=== PATIENT | female | born 1945 | race Caucasian/White ===

== ENCOUNTER 2023-08-13 18:51 | Inpatient (IN) | payer MEDICARE, OTHER ==
[~2023-08-13] VITALS: Ht 170.2 cm; Wt 48.1 kg
[2023-08-13] MEDS ORDERED: IV NS 0.9% 1,000 ML BAG IV ONE (19:30)
[2023-08-13 20:03] LABS: BASOPHILS % (AUTO) 0.7 % (0.0-2.0); EOSINOPHILS # (AUTO) 0.3 K/uL (0.0-0.7); EOSINOPHILS % (AUTO) 4.4 % (0.0-6.0); HEMATOCRIT 33 % (33-45); HEMOGLOBIN 11.1 g/dL (11.5-14.8); LYMPHOCYTES # (AUTO) 2.2 K/uL (0.8-4.8); LYMPHOCYTES % (AUTO) 34.5 % (20.0-44.0); MEAN CORPUSCULAR HEMOGLOBIN 31 PG (26.0-33.0); MEAN CORPUSCULAR HGB CONC 34 g/dl (31.0-36.0); MEAN CORPUSCULAR VOLUME 92 fL (82-100); MONOCYTES # (AUTO) 0.6 K/uL (0.1-1.30); MONOCYTES % (AUTO) 9.4 % (2.0-12.0); NEUTROPHILS # (AUTO) 3.3 K/uL (1.8-8.9); PLATELET COUNT (AUTO) 234 K/uL (150-450); RED BLOOD CELL COUNT(AUTO) 3.59 MIL/uL (4.0-5.2); RED CELL DISTRIBUTION WIDTH 12.6 % (11.5-15.0); WHITE BLOOD COUNT (AUTO) 6.5 K/uL (4.3-11.0)
[2023-08-13 20:30] LABS: CALCIUM, SERUM 8.9 mg/dL (8.5-10.1); CARBON DIOXIDE 29 mmol/L (21-32); CHLORIDE 104 mmol/L (98-107); CREATININE 1.1 mg/dL (0.6-1.3); GLUCOSE 103 mg/dL (74-106); POTASSIUM 3.7 mmol/L (3.5-5.1); SODIUM SERUM 140 mmol/L (136-145); UREA NITROGEN, BLOOD 28 mg/dL (7-18)
[2023-08-13 20:38] LABS: LACTIC ACID 1.2 mmol/L (0.4-2.0)
[2023-08-13 20:44] LABS: ALANINE AMINOTRANSFERASE 11 U/L (12-78); ALBUMIN 3.2 g/dL (3.4-5.0); ALKALINE PHOSPHATASE 60 U/L (46-116); ASPARTATE AMINOTRANSFERASE 17 U/L (15-37); BILIRUBIN,DIRECT 0.1 mg/dL (0.0-0.2); BILIRUBIN,TOTAL 0.2 mg/dL (0.2-1.0); TOTAL PROTEIN, SERUM 7.1 g/dL (6.4-8.2)
[2023-08-13 20:52] LABS: INR 1.01 (0.91-1.10); PROTHROMBIN TIME 10.7 SECS (9.2-11.1)
[2023-08-13 21:20] LABS: APPEARANCE,URINE CLEAR (CLEAR); BILIRUBIN,URINE NEGATIVE (NEGATIVE); BLOOD, URINE NEGATIVE Ery/uL (NEGATIVE); COLOR,URINE YELLOW (YELLOW); KETONES,URINE NEGATIVE (NEGATIVE); LEUKOCYTE ESTERASE ,URINE NEGATIVE (NEGATIVE); NITRITE, URINE NEGATIVE (NEGATIVE); PH,URINE 5.5 (5.0-8.0); PROTEIN,URINE NEGATIVE (NEGATIVE); UGLUCOSE NEGATIVE (NEGATIVE)
[2023-08-13] MEDS ORDERED: CEFTRIAXONE 1GM BAG (ER ONLY) 50 ML IV ONE ×2 (21:30→21:34)
[2023-08-13 22:10] LABS: ADD URINE CULTURE NO; BACTERIA,URINE None seen /HPF (None Seen); RBC,URINE 0-2 /HPF (0-2); SQUAMOUS EPITHELIAL CELL,UR 0-2 /HPF (None Seen); WBC,URINE 0-2 /HPF (0-3)
[2023-08-13] MEDS ORDERED: ACETAMINOPHEN 325 MG TABLET PO PRN (22:30)
[2023-08-13] MEDS ORDERED: IV NS 0.9% 1,000 ML IV SCH (22:30)
[2023-08-13] MEDS ORDERED: MORPHINE SULFATE INJ 2 MG/ML DISP.SYRIN IV PRN (22:30)
[2023-08-13] MEDS ORDERED: ONDANSETRON HCL/PF 4 MG/2 ML VIAL IVP PRN (22:30)
[2023-08-13 23:00] VITALS: BP 129/61; O2SAT 96
[2023-08-13] MEDS: TRAZODONE 50 MG TABLET PO SCH (23:30)
[2023-08-13] MEDS: ALPRAZOLAM 0.25 MG TABLET PO SCH (23:30)
[2023-08-13] MEDS: GABAPENTIN 300 MG CAPSULE PO SCH (23:31)
[2023-08-13] MEDS: CARBIDOPA/LEVA CR 25/100MG 1 TAB.SA PO SCH (23:31)
[2023-08-13] MEDS: ENOXAPARIN SODIUM 40 MG/0.4 ML DISP.SYRIN SQ SCH (23:32)
[2023-08-14 06:28] LABS: BASOPHILS % (AUTO) 0.5 % (0.0-2.0); EOSINOPHILS # (AUTO) 0.3 K/uL (0.0-0.7); EOSINOPHILS % (AUTO) 3.7 % (0.0-6.0); HEMATOCRIT 32 % (33-45); HEMOGLOBIN 10.8 g/dL (11.5-14.8); LYMPHOCYTES % (AUTO) 27.2 % (20.0-44.0); MEAN CORPUSCULAR HEMOGLOBIN 31 PG (26.0-33.0); MEAN CORPUSCULAR HGB CONC 34 g/dl (31.0-36.0); MEAN CORPUSCULAR VOLUME 92 fL (82-100); MONOCYTES # (AUTO) 0.6 K/uL (0.1-1.30); MONOCYTES % (AUTO) 8.1 % (2.0-12.0); NEUTROPHILS # (AUTO) 4.4 K/uL (1.8-8.9); NEUTROPHILS % (AUTO) 60.5 % (43.0-81.0); PLATELET COUNT (AUTO) 211 K/uL (150-450); RED BLOOD CELL COUNT(AUTO) 3.44 MIL/uL (4.0-5.2); RED CELL DISTRIBUTION WIDTH 12.5 % (11.5-15.0); WHITE BLOOD COUNT (AUTO) 7.3 K/uL (4.3-11.0)
[2023-08-14 06:40] LABS: ALANINE AMINOTRANSFERASE 13 U/L (12-78); ALBUMIN 2.8 g/dL (3.4-5.0); ALKALINE PHOSPHATASE 55 U/L (46-116); ASPARTATE AMINOTRANSFERASE 13 U/L (15-37); BILIRUBIN,TOTAL 0.2 mg/dL (0.2-1.0); CALCIUM, SERUM 8.7 mg/dL (8.5-10.1); CARBON DIOXIDE 26 mmol/L (21-32); CHLORIDE 108 mmol/L (98-107); CREATININE 0.8 mg/dL (0.6-1.3); GLUCOSE 106 mg/dL (74-106); MAGNESIUM 1.8 mg/dL (1.8-2.4); PHOSPHORUS 3.8 mg/dL (2.5-4.9); POTASSIUM 4.1 mmol/L (3.5-5.1); SODIUM SERUM 141 mmol/L (136-145); TOTAL PROTEIN, SERUM 6.3 g/dL (6.4-8.2); UREA NITROGEN, BLOOD 19 mg/dL (7-18)
[2023-08-14 07:30] VITALS: BP 158/73; TEMP 97.5; O2SAT 94
[2023-08-14] MEDS ORDERED: IV NS 0.9% 1,000 ML IV PRN (08:33)
[2023-08-14] MEDS ORDERED: LOSA50TA39 PO (08:41)
[2023-08-14] MEDS ORDERED: LANS30CA56 PO (08:41)
[2023-08-14] MEDS ORDERED: LINA145C PO (08:41)
[2023-08-14] MEDS ORDERED: GABA-532 PO ×2 (08:41)
[2023-08-14] MEDS ORDERED: PRAM0.258 PO (08:41)
[2023-08-14] MEDS ORDERED: DONE10TA44 PO (08:41)
[2023-08-14] MEDS ORDERED: LEVO75TA99 PO (08:41)
[2023-08-14] MEDS ORDERED: ASPI-1420 PO (08:41)
[2023-08-14] MEDS ORDERED: SENN-148 PO (08:41)
[2023-08-14] MEDS ORDERED: CYAN10006 IM (08:41)
[2023-08-14] MEDS ORDERED: FLUT1BLS6 INH (08:41)
[2023-08-14] MEDS ORDERED: ATEN50TA PO (08:41)
[2023-08-14] MEDS ORDERED: CARB1TAB39 PO (08:41)
[2023-08-14] MEDS ORDERED: TRAZ-252 PO (08:41)
[2023-08-14] MEDS ORDERED: QUET25TA PO (08:41)
[2023-08-14] MEDS ORDERED: ALPR0.5T8 PO (08:41)
[2023-08-14] MEDS: CARBIDOPA/LEVA CR 25/100MG 1 TAB.SA PO SCH ×3 (09:28→16:03)
[2023-08-14] MEDS ORDERED: Z GUARD REMEDY 4 OZ OINT TP PRN (10:30)
[2023-08-14] MEDS: Z GUARD REMEDY 4 OZ OINT TP SCH (11:44)
[2023-08-14] MEDS: PROSOURCE / PROSTAT (PYXIS) 30 ML UDC PO SCH ×2 (12:37→16:37)
[2023-08-14] MEDS: AMOX/CLAVULANATE 875 MG TABLET PO SCH ×2 (12:50→22:10)
[2023-08-14] MEDS: ENSURE ENLIVE 237 ML LIQUID (VANILLA) PO SCH ×2 (13:01→16:35)
[2023-08-14 16:00] VITALS: BP 184/89; TEMP 97.2; O2SAT 95
[2023-08-14] MEDS: hydrALAZINE HCL 10 MG TABLET PO PRN (16:40)
[2023-08-14 17:30] VITALS: BP 173/86
[2023-08-14 19:00] VITALS: BP 169/79; TEMP 97.9; O2SAT 96
[2023-08-14 20:36] VITALS: BP 169/79; TEMP 97.9; O2SAT 96
[2023-08-14] MEDS: GABAPENTIN 300 MG CAPSULE PO SCH (21:39)
[2023-08-14] MEDS: TRAZODONE 50 MG TABLET PO SCH (21:39)
[2023-08-14] MEDS: ALPRAZOLAM 0.25 MG TABLET PO SCH (21:39)
[2023-08-14] MEDS: ENOXAPARIN SODIUM 40 MG/0.4 ML DISP.SYRIN SQ SCH (21:39)
[2023-08-15 01:12] VITALS: BP 173/97; TEMP 97.9; O2SAT 97
[2023-08-15] MEDS: hydrALAZINE HCL 10 MG TABLET PO PRN ×3 (01:12→16:32)
[2023-08-15 04:02] VITALS: BP 53/93; TEMP 98; O2SAT 96
[2023-08-15 05:53] LABS: BASOPHILS % (AUTO) 0.8 % (0.0-2.0); EOSINOPHILS # (AUTO) 0.3 K/uL (0.0-0.7); EOSINOPHILS % (AUTO) 4.5 % (0.0-6.0); HEMATOCRIT 35 % (33-45); HEMOGLOBIN 11.9 g/dL (11.5-14.8); LYMPHOCYTES # (AUTO) 1.8 K/uL (0.8-4.8); LYMPHOCYTES % (AUTO) 27.9 % (20.0-44.0); MEAN CORPUSCULAR HEMOGLOBIN 31 PG (26.0-33.0); MEAN CORPUSCULAR HGB CONC 34 g/dl (31.0-36.0); MEAN CORPUSCULAR VOLUME 90 fL (82-100); MONOCYTES # (AUTO) 0.4 K/uL (0.1-1.30); NEUTROPHILS # (AUTO) 3.8 K/uL (1.8-8.9); NEUTROPHILS % (AUTO) 59.8 % (43.0-81.0); PLATELET COUNT (AUTO) 253 K/uL (150-450); RED BLOOD CELL COUNT(AUTO) 3.84 MIL/uL (4.0-5.2); RED CELL DISTRIBUTION WIDTH 12.4 % (11.5-15.0); WHITE BLOOD COUNT (AUTO) 6.3 K/uL (4.3-11.0)
[2023-08-15 06:13] LABS: CALCIUM, SERUM 9.3 mg/dL (8.5-10.1); CARBON DIOXIDE 27 mmol/L (21-32); CHLORIDE 104 mmol/L (98-107); CREATININE 0.6 mg/dL (0.6-1.3); GLUCOSE 101 mg/dL (74-106); MAGNESIUM 2.1 mg/dL (1.8-2.4); PHOSPHORUS 3.6 mg/dL (2.5-4.9); POTASSIUM 3.8 mmol/L (3.5-5.1); SODIUM SERUM 139 mmol/L (136-145); UREA NITROGEN, BLOOD 12 mg/dL (7-18)
[2023-08-15 07:30] VITALS: BP 184/87; TEMP 97.9; O2SAT 97
[2023-08-15] MEDS: PROSOURCE / PROSTAT (PYXIS) 30 ML UDC PO SCH ×3 (08:21→16:50)
[2023-08-15] MEDS: CARBIDOPA/LEVA CR 25/100MG 1 TAB.SA PO SCH ×3 (08:23→16:32)
[2023-08-15] MEDS: ENSURE ENLIVE 237 ML LIQUID (VANILLA) PO SCH ×3 (08:23→16:51)
[2023-08-15] MEDS: AMOX/CLAVULANATE 875 MG TABLET PO SCH (08:24)
[2023-08-15] MEDS: Z GUARD REMEDY 4 OZ OINT TP SCH (08:25)
[2023-08-15] MEDS ORDERED: LEVOTHYROXINE SODIUM 75 MCG TABLET PO SCH (08:30)
[2023-08-15] MEDS ORDERED: ATENOLOL 50 MG TABLET PO SCH (09:00)
[2023-08-15] MEDS ORDERED: LOSA25TA27 PO (11:19)
[2023-08-15] MEDS ORDERED: ALBUTEROL FS 2.5 MG/0.5 ML VIAL.NEB NEB SCH (13:30)
[2023-08-15] MEDS ORDERED: IPRATROPIUM NEB FS 0.5 MG/2.5 ML AMPUL.NEB NEB SCH (13:30)
[2023-08-15] MEDS ORDERED: ALPRAZOLAM 0.25 MG TABLET PO ONE (15:00)
[2023-08-15] MEDS ORDERED: ASPIRIN EC 81 MG TABLET.DR PO SCH (16:00)
[2023-08-15 17:20] VITALS: BP 165/90
[2023-08-15] MEDS ORDERED: LOSARTAN POTASSIUM 50 MG TABLET PO SCH (18:00)
[2023-08-15] MEDS ORDERED: PRAMIPEXOLE DI-HCL 0.25 MG TABLET PO SCH (18:00)
[2023-08-15] MEDS ORDERED: BUDESONIDE RESPULE INH 0.5 MG/2 ML AMPUL.NEB NEB SCH (21:00)
[2023-08-16] MEDS ORDERED: DONEPEZIL 5 MG TABLET PO SCH (09:00)
== END 2023-08-15 17:45 | DRG 312 ==
LOC: ER 18:55 → TELE 21:38
PROVIDERS: ADMIT Internal Medicine; ATTEND Nurse Practitioner Family
DX: I95.2 Hypotension due to drugs (principal); F02.818 Dementia in other diseases classified elsewhere, unspecified severity, with other behavioral disturbance; G20 Parkinson's disease; D64.9 Anemia, unspecified; G47.00 Insomnia, unspecified; I10 Essential (primary) hypertension; T42.75XA Adverse effect of unspecified antiepileptic and sedative-hypnotic drugs, initial encounter; T43.215A Adverse effect of selective serotonin and norepinephrine reuptake inhibitors, initial encounter; Y92.099 Unspecified place in other non-institutional residence as the place of occurrence of the external cause; Z87.440 Personal history of urinary (tract) infections; Z87.09 Personal history of other diseases of the respiratory system; E04.1 Nontoxic single thyroid nodule; L85.3 Xerosis cutis; Z99.3 Dependence on wheelchair; Z79.82 Long term (current) use of aspirin; Z79.899 Other long term (current) drug therapy; Z79.890 Hormone replacement therapy; L85.9 Epidermal thickening, unspecified; L89.626 Pressure-induced deep tissue damage of left heel
CPT/HCPCS: 36415; 71045-TC; 80048-TC; 80053-TC; 80076-TC; 81001; 83605-TC; 83735-TC; 84100-TC; 84484-TC; 85025-TC; 85730-TC; 87040-TC; 87081-TC; 87086-TC; A4223; G0378; J0696; J1650; J7030